=== PATIENT | male | born 1960 | race Caucasian/White ===

== ENCOUNTER 2020-01-24 13:51 | Emergency (ER) | payer OTHER, SELFPAY ==
[2020-01-24 13:54] VITALS: RESP 15; BMI 32.9
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
[2020-01-24 14:03] VITALS: BP 131/80; PULSE 53; RESP 12; TEMP 36.7; O2SAT 94
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
[2020-01-24 14:29] LABS: Add Urine Microscopic? NO
[2020-01-24 14:33] LABS: Urine Appearance Clear (CLEAR); Urine Color Yellow (Yellow)
[2020-01-24 14:34] LABS: Bilirubin Urine Neg (NEGATIVE); Blood Urine Neg (Negative); Glucose Urine UA Norm (Normal); Ketones Urine Negative (Negative); Leukocyte Esterase Urine Negative (Negative); Nitrate Urine Negative (Negative); Protein Urine Neg (Negative); Specific Gravity, Urine 1.025 (1.005-1.030); Urobilinogen Urine Neg (Negative); pH Urine 5 (5-7)
[2020-01-24 14:51] LABS: Basophils # 0.1 10^3/uL (0.0-0.1); Basophils % 0.9 %; Eosinophils # 0.3 10^3/uL (0.0-0.8); Hemoglobin 16.4 g/dL (11.7-16.6); Lymphocytes # 1.9 10^3/uL (0.8-4.8); Lymphocytes % 20.6 %; Mean Corpuscular HGB Conc 32.8 g/dL (30.0-36.0); Mean Corpuscular Hemoglobin 28.6 pg (28.0-34.0); Mean Corpuscular Volume 87.3 fL (80-94); Mean Platelet Volume 9.4 fL (7.4-10.4); Monocytes # 0.6 10^3/uL (0.2-0.9); Monocytes % 7.1 %; Neutrophils # 6.11 10^3/uL (1.8-7.7); Neutrophils % 67.8 %; Nucleated Red Blood Cells % 0 %; Platelet Count 219 10^3/cmm (130-400); Red Blood Count 5.73 10^6/uL (4.1-5.3); Red Cell Distribution Width 12.4 % (12.1-15.1)
[2020-01-24 15:10] LABS: Alanine Aminotransferase 52 U/L (0-41); Alkaline Phosphatase 110 IU/L (40-130); Aspartate Amino Transferase 25 U/L (0-40); Blood Urea Nitrogen 21 mg/dL (6-20); Calcium 9.5 mg/dL (8.5-10.5); Carbon Dioxide 27 mmol/L (22-29); Chloride 100 mmol/L (98-107); Globulin 2.6 g/dL (1.3-4.6); Glomerular Filtration Rate 76.7 mL/min (90-130); Glucose 97 mg/dL (65-115); Osmolality Calculated 283 mOsm/kg (285-295); Sodium 138 mmol/L (136-145); Total Bilirubin 1.4 mg/dL (0.15-1.2); Total Protein 7.6 g/dL (6.6-8.7)
[2020-01-24 15:50] VITALS: BP 133/66; PULSE 70; RESP 14; O2SAT 97
--- NOTE | 2020-01-24 15:57 | PC.NURSE ---
Read and agree with assessment.
== END 2020-01-24 15:51 | disposition home or self-care (01) ==
PROVIDERS: Emergency Provider Family Medicine
DX: S39.012A Strain of muscle, fascia and tendon of lower back, initial encounter (principal); V89.2XXA Person injured in unspecified motor-vehicle accident, traffic, initial encounter
CPT/HCPCS: 12345; 36415; 72040; 72131; 73110; 73130; 80053; 81003; 85025; 99283

== ENCOUNTER → 2021-11-15 14:30 | Outpatient (BNVA) | payer OTHER, SELFPAY | PROVIDERS: PCP Family Medicine; Visit Provider Family Medicine | DX: E79.0 Hyperuricemia without signs of inflammatory arthritis and tophaceous disease (principal) | CPT/HCPCS: 84550 ==

== ENCOUNTER → 2022-02-13 15:48 | Outpatient (BNVA) | payer OTHER, SELFPAY | PROVIDERS: PCP Family Medicine; Visit Provider Family Medicine | DX: M10.9 Gout, unspecified (principal); M25.50 Pain in unspecified joint | CPT/HCPCS: 80053; 84550 ==

== ENCOUNTER → 2022-10-01 14:01 | Outpatient (BNVA) | payer OTHER, SELFPAY | PROVIDERS: PCP Family Medicine; Visit Provider Nurse Practitioner Family | DX: M79.601 Pain in right arm (principal) | CPT/HCPCS: 73060 ==

== ENCOUNTER → 2022-12-05 09:59 | Outpatient (BNVA) | payer OTHER, SELFPAY | PROVIDERS: PCP Family Medicine; Visit Provider Family Medicine | DX: R10.9 Unspecified abdominal pain (principal); R39.9 Unspecified symptoms and signs involving the genitourinary system; M10.9 Gout, unspecified; M25.50 Pain in unspecified joint; R53.83 Other fatigue; R79.89 Other specified abnormal findings of blood chemistry; Z13.6 Encounter for screening for cardiovascular disorders; E03.9 Hypothyroidism, unspecified; R73.9 Hyperglycemia, unspecified; D17.9 Benign lipomatous neoplasm, unspecified | CPT/HCPCS: 80053; 80061; 81000; 82040; 82607; 83036; 84270; 84403; 84443; 85025 ==

== ENCOUNTER → 2022-12-17 08:08 | Outpatient (BNVA) | payer OTHER, SELFPAY | PROVIDERS: PCP Family Medicine; Visit Provider Family Medicine | DX: R11.2 Nausea with vomiting, unspecified (principal); R53.83 Other fatigue | CPT/HCPCS: 80053; 83690; 85025 ==

== ENCOUNTER → 2022-12-25 10:46 | Outpatient (BNVA) | payer OTHER, SELFPAY | PROVIDERS: PCP Family Medicine; Visit Provider Family Medicine | DX: R11.2 Nausea with vomiting, unspecified (principal); E03.9 Hypothyroidism, unspecified; R79.89 Other specified abnormal findings of blood chemistry | CPT/HCPCS: 80053; 85025; 86140 ==

== ENCOUNTER 2022-12-26 13:43 | Outpatient (CLI) | payer OTHER, SELFPAY ==
--- NOTE | 2022-12-26 13:30 | US_ITS ---
WS: [id number] Complete ABDOMINAL ULTRASOUND HISTORY: R11.2 - Nausea with vomiting, unspecified COMPARISON: None available. Liver: 16.8 cm in length. Normal size liver. Area of decreased attenuation adjacent to the gallbladde r is most likely focal fatty sparing. This area measures 3.0 x 1.7 x 1.6 cm. No bile duct dilatation. Portal Vein: Normal hepatopetal flow with monophasic waveform. Gallbladder: Cholelithiasis. No evidence for acute cholecystitis. No pericholecystic fluid. CBD: 0.4 cm Pancreas: Normal size and echogenicity. Right kidney: 11.0 cm x 6.0 x 4.9 cm. Cortex:1.1 cm. Normal size and echogenicity. No hydronephrosis or mass. Left kidney: 11.1 cm x 5.5 cm x 5.0 cm. Cortex: 1.1 cm. Normal size and echogenicity. No hydronephrosis or mass. Spleen: Normal size. Aorta and IVC: Unremarkable abdominal aorta and IVC. US/US abdomen complete* [id number] Impression: 1. Cholelithiasis without evidence for acute cholecystitis. 2. Focal fatty sparing adjacent to the gallbladder. 3. Normal spleen.
== END 2022-12-26 13:44 | disposition home or self-care (01) ==
PROVIDERS: PCP Family Medicine; Visit Provider Family Medicine
DX: R11.2 Nausea with vomiting, unspecified (principal); K80.20 Calculus of gallbladder without cholecystitis without obstruction; R79.89 Other specified abnormal findings of blood chemistry
CPT/HCPCS: 76700

== ENCOUNTER → 2023-01-19 11:28 | Outpatient (BNVA) | payer OTHER, SELFPAY | PROVIDERS: PCP Family Medicine; Visit Provider Family Medicine | DX: K80.20 Calculus of gallbladder without cholecystitis without obstruction (principal); R79.89 Other specified abnormal findings of blood chemistry; R11.2 Nausea with vomiting, unspecified; E03.9 Hypothyroidism, unspecified | CPT/HCPCS: 80053; 85025; 86140 ==

== ENCOUNTER 2023-11-06 13:54 | Emergency (ER) | payer OTHER, SELFPAY ==
[2023-11-06] VITALS (13 sets, daily range): BP systolic 126–179; BP diastolic 69–96; PULSE 46–58; RESP 12–18; TEMP 36.4; O2SAT 93–97; BMI 30.2
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
[2023-11-06 14:45] LABS: Basophils # 0.1 10^3/uL (0.0-0.1); Basophils % 0.8 %; Eosinophils # 0.3 10^3/uL (0.0-0.8); Hematocrit 49.2 % (37-53); Lymphocytes # 1.9 10^3/uL (0.8-4.8); Lymphocytes % 21.9 %; Mean Corpuscular HGB Conc 33.5 g/dL (30-55); Mean Corpuscular Hemoglobin 28.5 pg (27-33); Mean Corpuscular Volume 85.1 fl (82-101); Mean Platelet Volume 9.4 fL (7.4-10.4); Monocytes # 0.7 10^3/uL (0.2-0.9); Monocytes % 7.7 %; Neutrophils # 5.75 10^3/uL (1.8-7.7); Nucleated Red Blood Cells % 0 %; Platelet Count 247 10^3/cmm (157-399); Red Blood Count 5.78 10^6/uL (3.85-5.65); Red Cell Distribution Width 13.4 % (12.1-15.1); White Blood Count 8.71 10^3/uL (3.29-11.43)
[2023-11-06] MEDS: ketorolac 30 mg/mL INJ 15 MG IVP (14:55)
[2023-11-06] MEDS: ondansetron 2 mg/ML SDV 2 mL 4 MG IVP ×2 (14:55→23:15)
[2023-11-06 14:56] LABS: Alanine Aminotransferase 42 U/L (0-41); Albumin Level 4.4 g/dL (3.5-5.2); Alkaline Phosphatase 142 U/L (40-130); Anion Gap 13.2 (5-19); Aspartate Amino Transferase 24 U/L (0-40); Blood Urea Nitrogen 17 mg/dL (8-23); Calcium 9.1 mg/dL (8.5-10.5); Carbon Dioxide 28 mmol/L (22-29); Chloride 101 mmol/L (98-107); Creatinine Clr Calc Pharmacy 105.8665; Globulin 3.4 g/dL (1.3-4.6); Glomerular Filtration Rate 67.8 mL/min (90-130); Glucose 72 mg/dL (65-115); Osmolality Calculated 286 mOsm/kg (285-295); Potassium 4.2 mmol/L (3.5-5.1); Sodium 138 mmol/L (136-145); Total Bilirubin 1.2 mg/dL (0.15-1.2); Total Protein 7.8 g/dL (6.6-8.7)
--- NOTE | 2023-11-06 15:00 | PC.PHAR ---
PT STATES NO LONGER TAKES ANY MEDICATIONS AT ALL. 11/06/23
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
[2023-11-06 16:13] LABS: Add Urine Microscopic? NO; Charge for UA Resulting for Rev
[2023-11-06] MEDS: iohexol 350 mg/mL 500 mL Btl (per mL) IV (16:17)
[2023-11-06 16:22] LABS: Bilirubin Urine Neg (Negative); Blood Urine Neg (Negative); Glucose Urine UA Norm (Normal); Ketones Urine Negative (Negative); Leukocyte Esterase Urine Negative (Negative); Nitrate Urine Negative (Negative); Protein Urine Neg (Negative); Specific Gravity, Urine 1.025 (1.005-1.030); Urine Appearance Clear (CLEAR); Urine Color Yellow (Yellow); Urobilinogen Urine Norm (Negative); pH Urine 5 (5-7)
--- NOTE | 2023-11-06 18:22 | ED_ITS ---
HPI - Abdominal Pain 2 General: Chief Complaint: Abdominal Pain Stated Complaint: left side pain Time Seen by Provider: 11/06/23 14:08 Source: patient and family Mode of arrival: ambulatory Limitations: no limitations History of Present Illness: Left flank abdominal pain gradually creasing last 3 days. Currently 2 out of 10 at rest but if he goes to get up or move or anything becomes severe. Pertinent history as the patient had a horse accident back in April and had a left kidney laceration and large left renal subcapsular hematoma that is being followed by urology in clinic. He required no surgical intervention at that time. Has been back to doing pre much as normal including even rode horses last week without pain. Now even hurts to lift his left leg onto the bed. Review of Systems 2 General: Reports: 10 or more systems reviewed and unremarkable except in HPI and below PFSH ED 2 PFSH: Medical History No significant past medical history Surgical History S/P tonsillectomy and adenoidectomy S/P appendectomy History of back surgery Social History Smoking and tobacco/nicotine status: never used tobacco/nicotine Second hand smoke exposure: No Alcohol intake: current Substance/Drug Use: never Adopted: No Caregiver/support person: No Lives independently: Yes Household members: family Housing: House Marital status: Number of children: 1 Highest education level completed: Associate Degree: Occupational, Technical, Vocational Program service: No Current occupational status: employed Physical Exam 2 Const: COMMON NORMALS: no acute distress, average body habitus, patient oriented x3, healthy appearing, alert and well nourished GENERAL APPEARANCE: well kempt and well developed HENMT: COMMON NORMALS: normocephalic, atraumatic, external ears normal and moist oral mucous membranes HEAD & SCALP: normocephalic and atraumatic E XTERNAL EAR: Yes external ears normal Eye: COMMON NORMALS: Equal, round and reactive pupils present, EOMs intact bilaterally and conjunctivae normal CONJUNCTIVA: Yes conjunctivae normal P UPIL: Yes Equal, round and reactive pupils present Neck/C-Spine: COMMON NORMALS: full ROM, no lymphadenopathy and supple Chest: CHEST: Yes Symmetrical chest wall rise and No Surgical scars present (Chest) Resp: COMMON NORMALS: normal respiratory effort, No retractions, No use of accessory muscles and clear to auscultation bilaterally AUSCULTATION: clear to auscultation bilaterally Cardio: COMMON NORMALS: regular rate, regular rhythm, S1 normal heart sound present, S2 normal heart sound present, No gallops present (Cardio), No clicks present (Cardio), No murmurs present (Cardio) and No rub (Cardio) RATE: r egular rate RHYTHM: regular rhythm HEART SOUNDS: S1 normal heart sound present, S2 normal heart sound present and no murmurs PERIPHERAL PULSES: o ther (Radial pulses 2+ and symmetric) GI: COMMON NORMALS: Soft to palpation and no masses INSPECTION: No abdominal distension PALPATION: Yes Soft to palpation, Yes Tenderness to palpation present (GI) Details: LLQ and LUQ, Yes Guarding due to palpation present (GI) and No Rebound tenderness present : BLADDER/KIDNEY EXAM: Yes CVA tenderness on the left Back/Pelvis: GENERAL BACK: Yes CVA tenderness Extremity: COMMON NORMALS: normal to inspection, full ROM, capillary refill normal and no clubbing, cyanosis or edema Neuro: COMMON NORMALS: patient oriented x3 SENSORIUM/ORIENTATION: Yes alert Psych: APPEARANCE: Yes well kempt Skin: COMMON NORMALS: no rashes or lesions noted, no wounds, turgor normal and no jaundice GENERAL SKIN EXAM: no rashes or lesions noted and turgor normal Course 2 ED course: Stable pain ultrasound unable to even visualize the kidney. CT scan done and shows a large fluid collection attached to the left kidney subcentimeter hematoma and also what appears to be simple fluid. Per my interpretation. Radiology read provides more detail. Spoke with radiologist verbally after their read as well. Labs reviewed and unremarkable. Vital Signs: Vital signs: Vital Signs Temperature 97.5 F L 11/06/23 14:05 Pulse Rate 55 L 11/06/23 17:54 Respiratory Rate 16 11/06/23 17:54 Blood Pressure 156/96 11/06/23 17:54 Pulse Oximetry 96 11/06/23 17:54 Oxygen Delivery Me thod Room Air 11/06/23 17:54 MDM - Abdominal Pain Medical Decision Making See course discussion for radiology dictations. Patient deemed to need transfer with urology and IR capabilities. Spoke with [facility] in [place] their urologist reported that patient was too complicated for him. Patient has a 14.5 x 19.5 x 21.3 severe left kidney complex fluid collection. Comparing this to patient's CT scan from July which I will have his 1 view from patient's 's phone does appear that his kidney is now compressed and it was not this compressed in July. Spoke with [facility] in [place] and they agreed to accept patient Dr. Garland's excepting in the ER. Did discuss with their urologist Dr. Hanley. Differential Diagnosis Likely abdominal pain Medical Records I reviewed the patient's medical records. Lab Data I reviewed the patient's lab results. 11/06/23 14:16 11/06/23 14:16 Labs/Radiology: Radiology Impressions Renal Ultrasound 11/06/23 14:35 IMPRESSION: 1. No identifiable left kidney. A large complex area in the region of the left kidney is seen as described above. 2. Normal right kidney and bladder. Abdomen/Pelvis CT 11/06/23 15:33 IMPRESSION: 1. 19.5 cm x 4.5 cm x 21.3 cm left kidney subcapsular slightly complex fluid collection, favoring the known hematoma which appears to be chronic in etiology. The intraluminal strands/septations and nodular components are likely related to retractile clot although this should be confirmed with ultrasound and/or renal mass protocol MRI without and with intravenous contrast (to include subtraction postcontrast imaging). 2. Severe compression and displacement of the left kidney by the loculated collections/hematoma, in which Page kidney is possible. 3. Hepatomegaly. 4. Hepatic steatosis. 5. Cholelithiasis. 6. Colonic diverticulosis. 7. Incidental findings as above. COMMENTS: Consistent with the [employer]'s Incidental Findings Committee white paper (J Am Alexander Radiol 2018): Any incidental renal lesion less than 1 cm or classified as too small to characterize, or any incidental cystic renal lesion characterized as simple-appearing, is likely benign. No follow-up imaging is recommended for these lesions per consensus recommendations based on imaging criteria. ADDENDUM: 11/06/23 [id number] Comments: THIS REPORT CONTAINS FINDINGS THAT MAY BE CRITICAL TO PATIENT CARE. The findings were verbally communicated via telephone conference with MATTHEW REYNOSO at 5:11 PM CDT on 11/06/2023. The findings were acknowledged and understood. Laboratory Results WBC 8.71 10^3/uL (3.29-11.43) 11/06/23 14:16 RBC 5.78 10^6/uL (3.85-5.65) H 11/06/23 14:16 Hgb 16.50 g/dL (11.27-16.99) 11/06/23 14:16 Hct 49.2 % (37-53) 11/06/23 14:16 MCV 85.1 fl (82-101) 11/06/23 14:16 MCH 28.5 pg (27-33) 11/06/23 14:16 MCHC 33.5 g/dL (30-55) 11/06/23 14:16 RDW 13.4 % (12.1-15.1) 11/06/23 14:16 Plt Count 247 10^3/cmm (157-399) 11/06/23 14:16 MPV 9.4 fL (7.4-10.4) 11/06/23 14:16 Neut % (Auto) 66.0 % 11/06/23 14:16 Lymph % (Auto) 21.9 % 11/06/23 14:16 [place] % (Auto) 7.7 % 11/06/23 14:16 Eos % (Auto) 3.0 % 11/06/23 14:16 Baso % (Auto) 0.8 % 11/06/23 14:16 Neut # (Auto) 5.75 10^3/uL (1.8-7.7) 11/06/23 14:16 Lymph # (Auto) 1.9 10^3/uL (0.8-4.8) 11/06/23 14:16 Hettinger # (Auto) 0.7 10^3/uL (0.2-0.9) 11/06/23 14:16 Eos # (Auto) 0.3 10^3/uL (0.0-0.8) 11/06/23 14:16 Baso # (Auto) 0.1 10^3/uL (0.0-0.1) 11/06/23 14:16 Nucleated RBC % (auto) 0 % 11/06/23 14:16 Nucleated RBCs # 0.0 /100WBC 11/06/23 14:16 Sodium 138 mmol/L (136-145) 11/06/23 14:16 Potassium 4.2 mmol/L (3.5-5.1) 11/06/23 14:16 Chloride 101 mmol/L (98-107) 11/06/23 14:16 Carbon Dioxide 28 mmol/L (22-29) 11/06/23 14:16 Anion Gap 13.2 (5-19) 11/06/23 14:16 BUN 17 mg/dL (8-23) 11/06/23 14:16 Creatinine 1.1 mg/dL (0.7-1.2) 11/06/23 14:16 GFR Calculation 67.8 mL/min (90-130) L 11/06/23 14:16 Glucose 72 mg/dL (65-115) 11/06/23 14:16 Calculated Osmolality 286 mOsm/kg (285-295) 11/06/23 14:16 Calcium 9.1 mg/dL (8.5-10.5) 11/06/23 14:16 Total Bilirubin 1.2 mg/dL (0.15-1.2) 11/06/23 14:16 AST 24 U/L (0-40) 11/06/23 14:16 ALT 42 U/L (0-41) H 11/06/23 14:16 Alkaline Phosphatase 142 U/L (40-130) H 11/06/23 14:16 Total Protein 7.8 g/dL (6.6-8.7) 11/06/23 14:16 Albumin 4.4 g/dL (3.5-5.2) 11/06/23 14:16 Globulin 3.4 g/dL (1.3-4.6) 11/06/23 14:16 Urine Color Yellow (Yellow) 11/06/23 16:05 Urine Appearance Clear (CLEAR) 11/06/23 16:05 Urine pH 5 (5-7) 11/06/23 16:05 Ur Specific [place] 1.025 (1.005-1.030) 11/06/23 16:05 Urine Protein Neg (Negative) 11/06/23 16:05 Urine Glucose (UA) Norm (Normal) 11/06/23 16:05 Urine Ketones Negative (Negative) 11/06/23 16:05 Urine Blood Neg (Negative) 11/06/23 16:05 Urine Nitrate Negative (Negative) 11/06/23 16:05 Urine Bilirubin Neg (Negative) 11/06/23 16:05 Urine Urobilinogen Norm mg/dL (Negative) 11/06/23 16:05 Ur Leukocyte Esterase Negative (Negative) 11/06/23 16:05 All radiology interpretation(s) finalized by discharge Discharge Plan Discharge Patient Disposition: Transfer to ED Clinical Impression: Acute left flank pain, Closed hematoma of left kidney Condition: Stable Prescriptions: No Action No Known Home Medications Referrals: Phoenix Calhoun DO [Primary Care Provider] - Coding Level of Care Code ED Water Pollution Control Inspector for Adeline Grimaldo
--- NOTE | 2023-11-06 20:09 | PC.NURSE ---
PT PROVIDED WITH FOOD AND ICE WATER PER REQUEST AND APPROVAL BY PROVIDER.
[2023-11-06] MEDS: morphine 4 mg/mL SDV 1 mL IVP (23:15)
[2023-11-07] VITALS (10 sets, daily range): BP systolic 107–136; BP diastolic 62–96; PULSE 43–54; RESP 9–14; O2SAT 91–96
[2023-11-07] MEDS: ketorolac 30 mg/mL INJ 15 MG IVP (02:53)
[2023-11-07] MEDS: morphine 4 mg/mL SDV 1 mL IVP (07:32)
[2023-11-07] MEDS: ondansetron 2 mg/ML SDV 2 mL 4 MG IVP (07:32)
== END 2023-11-07 10:39 ==
PROVIDERS: Emergency Provider Emergency Medicine; PCP Family Medicine
DX: R10.9 Unspecified abdominal pain (principal); S37.022A Major contusion of left kidney, initial encounter; X58.XXXA Exposure to other specified factors, initial encounter
CPT/HCPCS: 36415; 74177; 76770; 80053; 81003; 85025; 96374; 96375; 96376; 99285; J1885; J2270; J2405; Q9967

== ENCOUNTER 2023-12-09 14:20 | Outpatient (CLI) | payer OTHER, SELFPAY ==
--- NOTE | 2023-12-09 15:30 | US_ITS ---
WS: [id number] ULTRASOUND RENAL TECHNIQUE: Ultrasound examination of both kidneys. CLINICAL INFORMATION: R10.9 - Unspecified abdominal pain COMPARISON: CT and ultrasound 11/06/2023 FINDINGS: LEFT renal subcapsular hematoma with septations and retractile clot measures approximately 17.6 x 11.0 x 15.3 cm. This is large in size but has slightly improved compared to the prior CT 2023. Persistent but slightly improved compression of the LEFT kidney RIGHT: Right kidney is normal in size and appearance. Echogenicity: Normal. Cortical thickness: 1.3 cm; Normal. Hydronephrosis: None. Perinephric fluid: None. Right kidney measures: 11.9 cm x 4.7 cm x 4.9 cm. LEFT: Left kidney compressed by the hematoma but improved compared to previous. Cortical thickness: 1.5 cm; Hydronephrosis: None. Perinephric fluid: None. Left kidney measures: 12.9 cm x 4.9 cm x 4.8 cm. Normal visualized aorta. US/US renal BI* [id number] IMPRESSION: 1. No hydronephrosis in either kidney. 2. Subcapsular LEFT renal hematoma with associated septations and retracted cl ot. Compression and displacement of the LEFT kidney is persistent but slightly improved compared to the prior studies. 3. Persistent large hematoma slightly improved compared to the prior studies. This measures approximately 17.6 x 15.3 x 11.0 cm. On the prior CT this measure d approximately 22.0 x 16.6 x 12.9 cm 4. No other significant changes. Notified Phoenix Calhoun DO at 12/09/2023 3:44 PM.
== END 2023-12-09 14:21 | disposition home or self-care (01) ==
LOC: RAD 14:22
PROVIDERS: PCP Family Medicine; Visit Provider Family Medicine
DX: S37.022A Major contusion of left kidney, initial encounter (principal); X58.XXXA Exposure to other specified factors, initial encounter
CPT/HCPCS: 76770

== ENCOUNTER 2024-01-28 13:17 | Outpatient (CLI) | payer OTHER, SELFPAY ==
--- NOTE | 2024-01-28 13:45 | MR_ITS ---
WS: [id number] MRI LEFT SHOULDER HISTORY: M25.512 - Pain in left shoulder COMPARISON: None available. TECHNIQUE: Multiplanar sequences of the shoulder joint are submitted. Small amount of fluid along the AC joint and mild hypertrophic osteophyte disease. Mild subacromial i mpingement upon the supraspinatus tendon by an osteophyte. No significant subacromial or subdeltoid b ursal fluid. Biceps tendon remains in normal position. No os acromion. There is a small amount of increased T2 signal along the articular surface of the distal supraspinatu s tendon consistent with supraspinatus tendon tear. Tear extends to the insertion site. Tear involves the articular surface also. There is additional fraying along the articular surface of the tendon ov er the humeral head. The remaining tendons are normal. No muscle atrophy or edema. Small amount of fl uid in the subscapularis recess. No labral tear. MR/MR shoulder LT wo con* [id number] IMPRESSION: 1. Small amount of fluid in the AC joint this may be from the recent trauma in dicating a mild sprain. 2. Distal articular surface and insertion site tear of the supraspinatus tendo n with fraying along the articular surface. 3. No labral tear identified. 4. No rotator cuff muscle atrophy or edema.
== END 2024-01-28 13:18 | disposition home or self-care (01) ==
PROVIDERS: PCP Family Medicine; Visit Provider Family Medicine
DX: S46.012A Strain of muscle(s) and tendon(s) of the rotator cuff of left shoulder, initial encounter (principal)
CPT/HCPCS: 73221

== ENCOUNTER 2025-02-05 20:15 | Emergency (ER) | payer OTHER, SELFPAY ==
--- OUTSIDE RECORDS SUMMARY | 2024-01-20 12:00 | XMS_ITS ---
Author Organization [facility] Address [address] [place] [address] Care Team Providers Care Cushion Cover Inspector Name Role Phone Phoenix Calhoun Primary Care Provider FERCHO Shore Unavailable [phone] REASON FOR VISIT Kidney injury in May Encounters Encounter Location Date Provider Diagnosis [facility] [address] [place] [place] [address] 01/20/2024 FERCHO MIRANDA Plan Of Treatment No Information Progress Notes * Jack CASTILLOinDOB: [birth year] (64 yo M)Acc No.[id number]:01/20/2024 Progress Notes Patient: Desean HUSSEINAbhijit MALHOTRA Provider: Eb Miranda APRN :1960 A ge:63 Y S ex:Male Date:01/20/2024 [id number] Pcp:Phoenix Calhoun Subjective: * Chief Complaints: * 1 . Kidney injury in May. * Medical History: Objective: * Vitals: Assessment: Plan: * Treatment: * Billing Information: * Visit Code: * Procedure Codes: * Electronic signature of LEFTY MIRANDA APRN on 02/08/2025 at 07:58 AM CDT Sign off status: Pending * Provider: Eb Miranda APRN Date: 01/20/2024 Generated for Jessica kilpatrick/Guerrero/eTransmitting on: 02/08/2025 07:58 AM CDT
[2025-02-05 20:23] VITALS: BP 174/93; PULSE 61; RESP 16; O2SAT 97
--- NOTE | 2025-02-05 21:28 | ECG_ITS ---
true[x] [facility] [place] [place] [facility] 2025-02[facility]05 Pat Name: Abhijit Castillo Department: Room: Gender: Male Netsuite Consultant: : 1960 Requested By: Costa Alvarado Order Number: [id number] Yisel MD: Tabatha Ayala M.D. Measurements Intervals [place] Rate: 51 P: 61 MI: 205 QRS: 62 QRSD: 104 T: 40 QT: 428 QTc: 396 Interpretive Statements SINUS BRADYCARDIA WITH SINUS ARRHYTHMIA No previous ECG available for comparison Electronically Signed On 02-06-2025 22:45:33 CDT by Tabatha Ayala M.D. [email or web address]
[2025-02-05 22:52] VITALS: BP 148/85; PULSE 50; RESP 16; O2SAT 96
[2025-02-05 23:00] LABS: Hematocrit 50.3 % (37-53); Hemoglobin 17.30 g/dL (11.27-16.99); Mean Corpuscular HGB Conc 34.4 g/dL (30-55); Mean Corpuscular Hemoglobin 28.6 pg (27-33); Mean Corpuscular Volume 83.3 fl (82-101); Nucleated Red Blood Cells % 0 %; Platelet Count 236 10^3/cmm (157-399); Red Blood Count 6.04 10^6/uL (3.85-5.65); White Blood Count 13.29 10^3/uL (3.29-11.43)
[2025-02-05 23:20] LABS: Alanine Aminotransferase 29 U/L (0-41); Albumin Level 4.7 g/dL (3.5-5.2); Alkaline Phosphatase 157 U/L (40-130); Anion Gap 20.0 (5-19); Aspartate Amino Transferase 22 U/L (0-40); Blood Urea Nitrogen 25 mg/dL (8-23); Calcium 9.5 mg/dL (8.5-10.5); Carbon Dioxide 24 mmol/L (22-29); Chloride 96 mmol/L (98-107); Creatinine Clr Calc Pharmacy 103.6272; Globulin 3.0 g/dL (1.3-4.6); Glucose 93 mg/dL (65-115); Magnesium 2.5 mg/dL (1.7-2.3); Osmolality Calculated 286 mOsm/kg (285-295); Potassium 4.0 mmol/L (3.5-5.1); Sodium 136 mmol/L (136-145); Total Protein 7.7 g/dL (6.6-8.7)
[2025-02-06 00:30] LABS: Glucose Urine UA Negative (Normal); Nitrate Urine Negative (Negative); Specific Gravity, Urine 1.021 (1.005-1.030)
[2025-02-06 00:35] LABS: Add Urine Microscopic? YES
--- NOTE | 2025-02-06 00:47 | W.ED.GENADLT ---
Documented by User: RANJEET Chaudhari 02/06/25 00:50 HPI - General Adult General: Chief complaint: General Medical Stated complaint: High Blood Pressure, Rash, lips/face numb Time Seen by Provider: 02/05/25 22:36 Source: patient Mode of arrival: ambulatory Limitations: no limitations History of Present Illness: Patient is a 64-year-old male who presents the emergency department planing of hypertension for the past few days. States that recently he was started on doxycycline and prednisone for a rash to his left upper extremity, and about that time noticed that he started to have perioral numbness intermittently, as well as nosebleeds and headache. States that he took his blood pressure and noted that it was in the 180 systolic, and has been doing this with his symptoms. States that normally he is 120/70 and heart rate is normally in the 40s or 50s, and that he has also had heart rate in the 80s. Denies any chest pain or shortness of breath, or any other symptoms. Does note a history of left renal hematoma that is stable. MD complaint: Hypertension, perioral numbness, nosebleeds Onset (ago): day(s) Associated symptoms: Reports headache(s) and rash; Deny chest pain, dyspnea, nausea, palpitations or vomiting Related Data Previous Rx's ?Medication ?Instructions ?Recorded febuxostat 80 mg tablet (Uloric) 80 mg PO DAILY uric acid 02/18/24 elevation/gout #90 tabs doxycycline hyclate 100 mg tablet 100 mg PO BID #10 tabs 02/02/25 triamcinolone acetonide 0.5 % 1 applic topical TID #15 grams 02/06/25 topical ointment Allergies Allergy/AdvReac Type Severity Reaction Status Date / Time No Known Allergies Allergy Verified 02/02/25 14:17 Review of Systems General: Reports: 10 or more systems reviewed and unremarkable except in HPI and below Const: Denies: fever(s), chills or fatigue Eyes: Denies: change in vision ENMT: Reports: epistaxis and other (Perioral numbness); Denies: throat pain, ear or mastoid pain or nasal discharge Card: Reports: other (Hypertension); Denies: chest pain, palpitations, swelling of feet/ankles or lightheadedness Resp: Denies: dyspnea, productive cough or wheezing GI: Denies: abdominal pain, nausea, vomiting, diarrhea or constipation : Denies: flank pain, difficulty urinating, dysuria or urinary frequency Musc: Denies: neck pain, back pain or joint pain Skin/Breast: Reports: rash Neuro: Reports: headache(s); Denies: numbness in extremities or weakness in extremities PFSH ED PFSH: Medical History No significant past medical history Surgical History S/P tonsillectomy and adenoidectomy S/P appendectomy History of back surgery Social History Smoking and tobacco/nicotine status: unknown if used tobacco/nicotine Second hand smoke exposure: No Alcohol intake: current Substance/Drug Use: never Adopted: No Caregiver/support person: No Lives independently: Yes Household members: family Housing: House Marital status: Number of children: 1 Highest education level completed: Associate Degree: Occupational, Technical, Vocational Program service: No Current occupational status: employed Physical Exam Const: COMMON NORMALS: no acute distress, patient oriented x3 and no limitations GENERAL APPEARANCE: cooperative, comfortable and well developed ORIENTATION/CONSCIOUSNESS: Yes awake, Yes oriented to person, Yes oriented to place and Yes oriented to time HENMT: COMMON NORMALS: normocephalic, atraumatic and hearing grossly normal bilaterally HEAD & SCALP: normocephalic and atraumatic Eye: COMMON NORMALS: Equal, round and reactive pupils present, EOMs intact bilaterally and conjunctivae normal CONJUNCTIVA: Yes conjunctivae normal PUPIL: Yes Equal, round and reactive pupils present Neck/C-Spine: COMMON NORMALS: full ROM, supple and no JVD Resp: COMMON NORMALS: normal respiratory effort, No retractions, No use of accessory muscles and clear to auscultation bilaterally AUSCULTATION: clear to auscultation bilaterally Cardio: COMMON NORMALS: no JVD, regular rate, regular rhythm, No clicks present (Cardio), No murmurs present (Cardio) and No rub (Cardio) RATE: regular rate RHYTHM: regular rhythm GI: COMMON NORMALS: Normal to inspection, nondistended, normoactive bowel sounds present, Soft to palpation and non-tender AUSCULTATION: Yes normoactive bowel sounds PALPATION: Yes Soft to palpation RECTAL EXAM: Yes deferred : COMMON NORMALS: Yes no CVA tenderness BLADDER/KIDNEY EXAM: Yes no CVA tenderness Back/Pelvis: COMMON NORMALS: no CVA tenderness, thoracic and lumbar spine normal to inspection, no thoracic nor lumbar tenderness and thoraco-lumbar ROM normal Extremity: COMMON NORMALS: normal to inspection, full ROM and capillary refill normal Neuro: COMMON NORMALS: patient oriented x3, moves all extremities, no focal motor deficits and no sensory deficits noted SENSORIUM/ORIENTATION: Yes oriented to person, Yes oriented to place and Yes oriented to time Psych: COMMON NORMALS: mental status grossly normal and Normal thought process present THOUGHT PROCESS: Normal thought process present Skin: NARRATIVE SKIN EXAM: Eczematous appearing rash to patient's left upper arm and left flank Course Vital Signs: Vital signs: Vital Signs Pulse Rate 56 L 02/06/25 01:00 Respiratory Rate 16 02/05/25 22:52 Blood Pressure 137/89 02/06/25 01:00 Pulse Oximetry 96 02/06/25 01:00 Oxygen Delivery Me thod Room Air 02/05/25 20:23 MDM - General Adult Medical Decision Making Patient presenting with reports of hypertension at home, recently began doxycycline and prednisone. History of left renal hematoma, otherwise healthy. Does not take anything for hypertension. Pressure with triage was 170/93, it has gradually decreased throughout ED stay. His labs were reassuring. EKG was also reassuring. I suspect that his transient hypotension is from his use of prednisone, I will have him stop this and we will do topical triamcinolone. He has been asymptomatic throughout ED stay, we will discharge home and have him continue monitoring blood pressure at home and follow-up routinely with regular provider this week for reevaluation. Lab Data 02/05/25 22:49 02/05/25 22:49 Laboratory Results WBC 13.29 10^3/uL (3.29-11.43) H 02/05/25 22:49 RBC 6.04 10^6/uL (3.85-5.65) H 02/05/25 22:49 Hgb 17.30 g/dL (11.27-16.99) H 02/05/25 22:49 Hct 50.3 % (37-53) 02/05/25 22:49 MCV 83.3 fl (82-101) 02/05/25 22:49 MCH 28.6 pg (27-33) 02/05/25 22:49 MCHC 34.4 g/dL (30-55) 02/05/25 22:49 RDW 12.6 % (12.1-15.1) 02/05/25 22:49 Plt Count 236 10^3/cmm (157-399) 02/05/25 22:49 MPV 9.6 fL (7.4-10.4) 02/05/25 22:49 Neut % (Auto) 74.7 % 02/05/25 22:49 Lymph % (Auto) 13.6 % 02/05/25:49 [place] % (Auto) 6.7 % 02/05/25:49 Eos % (Auto) 4.2 % 02/05/25:49 Baso % (Auto) 0.5 % 02/05/25: Neut # (Auto) 9.93 10^3/uL (1.8-7.7) H 02/05/25 22:49 Lymph # (Auto) 1.8 10^3/uL (0.8-4.8) 02/05/25 22:49 [place] # (Auto) 0.9 10^3/uL (0.2-0.9) 02/05/25 22:49 Eos # (Auto) 0.6 10^3/uL (0.0-0.8) 02/05/25:49 Baso # (Auto) 0.1 10^3/uL (0.0-0.1) 02/05/25 22:49 Nucleated RBC % (auto) 0 % 02/05/25: Nucleated RBCs # 0.0 /100WBC 02/05/25 22:49 Sodium 136 mmol/L (136-145) 02/05/25 22:49 Potassium 4.0 mmol/L (3.5-5.1) 02/05/25 22:49 Chloride 96 mmol/L (98-107) L 02/05/25 22:49 Carbon Dioxide 24 mmol/L (22-29) 02/05/25 22:49 Anion Gap 20.0 (5-19) H 02/05/25 22:49 BUN 25 mg/dL (8-23) H 02/05/25 22:49 Creatinine 1.1 mg/dL (0.7-1.2) 02/05/25 22:49 GFR Calculation 67.6 mL/min (90-130) L 02/05/25 22:49 Glucose 93 mg/dL (65-115) 02/05/25 22:49 Calculated Osmolality 286 mOsm/kg (285-295) 02/05/25 22:49 Calcium 9.5 mg/dL (8.5-10.5) 02/05/25 22:49 Magnesium 2.5 mg/dL (1.7-2.3) H 02/05/25 22:49 Total Bilirubin 2.0 mg/dL (0.15-1.2) H 02/05/25 22:49 AST 22 U/L (0-40) 02/05/25 22:49 ALT 29 U/L (0-41) 02/05/25 22:49 Alkaline Phosphatase 157 U/L (40-130) H 02/05/25 22:49 Total Protein 7.7 g/dL (6.6-8.7) 02/05/25 22:49 Albumin 4.7 g/dL (3.5-5.2) 02/05/25 22:49 Globulin 3.0 g/dL (1.3-4.6) 02/05/25 22:49 Urine Color Yellow (Yellow) 02/06/25 00:02 Urine Appearance Clear (CLEAR) 02/06/25 00:02 Urine pH 5.0 (5-7) 02/06/25 00:02 Ur Specific [place] 1.021 (1.005-1.030) 02/06/25 00:02 Urine Protein Trace (Negative) A 02/06/25 00:02 Urine Glucose (UA) Negative (Normal) 02/06/25 00:02 Urine Ketones 2+ (Negative) H 02/06/25 00:02 Urine Blood Negative (Negative) 02/06/25 00:02 Urine Nitrate Negative (Negative) 02/06/25 00:02 Urine Bilirubin Negative (Negative) 02/06/25 00:02 Urine Urobilinogen 1.0 mg/dL (Negative) 02/06/25 00:02 Ur Leukocyte Esterase Negative (Negative) 02/06/25 00:02 Urine RBC 0-2 /hpf (0-2) 02/06/25 00:02 Urine WBC 0-5 /hpf (0-5) 02/06/25 00:02 Ur Squamous Epith Cells 0-5 /hpf (0-5) 02/06/25 00:02 Amorphous Sediment Not Reportable 02/06/25 00:02 Urine Bacteria None seen /hpf (NONE) 02/06/25 00:02 Hyaline Casts 3.71 /lpf 02/06/25 00:02 No radiology studies performed this visit Discharge Plan Discharge Patient Disposition: Home Clinical Impression: Secondary hypertension Eczema Qualifiers: Eczema type: unspecified Qualified Code(s): L30.9 - Dermatitis, unspecified Condition: Stable Prescriptions: New triamcinolone acetonide 0.5 % ointment 1 applic topical TID Qty: 15 0RF Discontinued prednisone 20 mg tablet See Rx Instructions PO BID Qty: 18 5RF Rx Instructions: 3 po qday x 3 days, then 2 po qday x 3 days, the 1 po qday x 3 days. prednisone 20 mg tablet 20 mg PO DAILY Qty: 5 0RF prednisone 20 mg tablet 60 mg PO DAILY 3 Days Qty: 9 0RF No Action febuxostat [Uloric] 80 mg tablet 80 mg PO DAILY Qty: 90 3RF doxycycline hyclate 100 mg tablet 100 mg PO BID Qty: 10 0RF Discharge Orders: Discharge ED (Routine); Ordered 02/06/25 Ordered By: Deon Watt Referrals: Phoenix Calhoun DO [Primary Care Provider, Family Practice] Patient Instructions: Patient Portal & Ashley Instructions Activity Restrictions/Additional Instructions: Discharge instructions Diagnosis today: Elevated blood pressure likely related to recent prednisone use; rash requiring topical steroid treatment. Summary of today?s visit - Blood pressure was high on arrival and improved gradually during the emergency department stay. - Symptoms included lip/mouth area numbness and nosebleeds. Lab tests and heart tracing (ECG) were reassuring. - Prednisone is being stopped because steroids can raise blood pressure. Short courses can cause higher blood pressure, mood changes, and high blood sugar in some patients. - The rash will be managed with a topical steroid (triamcinolone), which treats skin inflammation with low risk of whole?body side effects when used correctly. Medications and skin care plan - Stop oral prednisone now. Systemic corticosteroids can raise blood pressure through salt and water retention; discontinuation is appropriate when risks outweigh benefits. Because this was a short recent course, no taper is typically needed; if taken at high dose or for more than ~3 weeks, a taper can be considered based on clinical judgment. - Doxycycline: Continue or stop per the original plan from the prescriber; no changes were made in the emergency department. - Start triamcinolone (topical steroid) for the rash: - Apply a thin layer to the affected areas 2?3 times daily, using the lowest amount that controls symptoms. - Do not apply to the face, groin, armpits, or broken skin unless directed. - Do not use with tight bandages or plastic wrap (no occlusion) unless specifically instructed; occlusion greatly increases absorption and side effects. - Avoid contact with the eyes. - Once the rash improves, reduce frequency and stop. Long-term continuous use, use on thin skin, or large areas increases risk of skin thinning; non-skin side effects are rare when used as directed. Blood pressure monitoring at home - Obtain or use a validated home BP monitor (arm cuff). Bring the monitor and a log to follow-up. Validated devices are recommended by the [place] [employer] for accurate home readings. - How to check: - Sit quietly for 5 minutes, back supported, feet flat, arm at heart level. - No caffeine, exercise, or tobacco for 30 minutes before measuring. - Check twice daily (morning and evening) for the next 1?2 weeks; record date, time, and readings. - Target and when to seek help: - If BP is 180/120 mm Hg or higher and you have chest pain, shortness of breath, severe headache, weakness, vision changes, confusion, or fainting, call emergency services. - If BP is repeatedly 160/100 mm Hg or higher without symptoms, call the clinic for advice within 24?48 hours. - Occasional mild nosebleeds can occur with high BP; if bleeding persists more than 15 minutes despite pressure, or is heavy, seek urgent care. Symptoms to watch for and when to return - Worsening neurologic symptoms (new weakness, trouble speaking, vision loss), chest pain, shortness of breath, severe headache, confusion, fainting: seek emergency care. - Signs of steroid side effects after stopping prednisone are uncommon after short courses, but report severe fatigue, dizziness, or persistent low blood pressure if they occur. - Skin: stop triamcinolone and call if there is worsening redness, pain, pus, fever (possible infection) or signs of skin thinning. Do not use on suspected skin infections without medical advice. Lifestyle measures for blood pressure - Limit salt (sodium) intake and avoid excess alcohol. Maintain hydration and regular activity as tolerated. These steps can help BP control as you transition off prednisone, which can cause salt and water retention and higher BP. Follow?up and care coordination - Primary care follow-up: within 1 week to review blood pressure log, reassess symptoms, and adjust therapy if needed. Bringing all medications (including [id number] and supplements) is helpful for a complete review, because some drugs can raise blood pressure and should be stopped if possible. - Dermatology follow-up: if the rash does not improve within 1?2 weeks on topical therapy or if frequent recurrences occur, consider dermatology evaluation to confirm diagnosis and optimize non?systemic treatments. - Bring this instruction sheet, the home BP log, and the BP monitor to your appointments. Clear communication of medication changes and home BP data improves safety and blood pressure control after discharge. Why prednisone was stopped - Oral corticosteroids like prednisone can raise blood pressure by causing salt and water retention and other metabolic effects; even short courses are associated with transient elevations in blood pressure and other side effects. - Because today?s tests were reassuring and the rash can be managed with topical therapy, stopping prednisone is the safest option. Topical steroids used correctly have a favorable safety profile, with rare systemic effects and most concerns limited to local skin changes with prolonged or inappropriate use. Print Language: Nauruan Coding Level of Care Code ED Comic Book Designer for g Fwd Documented by User: Costa Hernandez DO 02/06/25 03:45 HPI - General Adult General: Chief complaint: General Medical Stated complaint: High Blood Pressure, Rash, lips/face numb Time Seen by Provider: 02/05/25 22:36 Related Data Previous Rx's ?Medication ?Instructions ?Recorded febuxostat 80 mg tablet (Uloric) 80 mg PO DAILY uric acid 02/18/24 elevation/gout #90 tabs doxycycline hyclate 100 mg tablet 100 mg PO BID #10 tabs 02/02/25 triamcinolone acetonide 0.5 % 1 applic topical TID #15 grams 02/06/25 topical ointment Allergies Allergy/AdvReac Type Severity Reaction Status Date / Time No Known Allergies Allergy Verified 02/02/25 14:17 [facility] ED PFSH: Medical History No significant past medical history Surgical History S/P tonsillectomy and adenoidectomy S/P appendectomy History of back surgery Social History Smoking and tobacco/nicotine status: unknown if used tobacco/nicotine Second hand smoke exposure: No Alcohol intake: current Substance/Drug Use: never Adopted: No Caregiver/support person: No Lives independently: Yes Household members: family Housing: House Marital status: Number of children: 1 Highest education level completed: Associate Degree: Occupational, Technical, Vocational Program service: No Current occupational status: employed Course Vital Signs: Vital signs: Vital Signs Pulse Rate 56 L 02/06/25 01:00 Respiratory Rate 16 02/05/25 22:52 Blood Pressure 137/89 02/06/25 01:00 Pulse Oximetry 96 02/06/25 01:00 Oxygen Delivery Me thod Room Air 02/05/25 20:23 MDM - General Adult Medical Decision Making Patient presenting with reports of hypertension at home, recently began doxycycline and prednisone. History of left renal hematoma, otherwise healthy. Does not take anything for hypertension. Pressure with triage was 170/93, it has gradually decreased throughout ED stay. His labs were reassuring. EKG was also reassuring. I suspect that his transient hypotension is from his use of prednisone, I will have him stop this and we will do topical triamcinolone. He has been asymptomatic throughout ED stay, we will discharge home and have him continue monitoring blood pressure at home and follow-up routinely with regular provider this week for reevaluation. Patient was originally seen by Mr. Alysa PA-C. I agree with his history, evaluation, and management. Lab Data 02/05/25 22:49 02/05/25 22:49 Laboratory Results WBC 13.29 10^3/uL (3.29-11.43) H 02/05/25 22:49 RBC 6.04 10^6/uL (3.85-5.65) H 02/05/25 22:49 Hgb 17.30 g/dL (11.27-16.99) H 02/05/25 22:49 Hct 50.3 % (37-53) 02/05/25 22:49 MCV 83.3 fl (82-101) 02/05/25 22:49 MCH 28.6 pg (27-33) 02/05/25 22: MCHC 34.4 g/dL (30-55) 02/05/25: RDW 12.6 % (12.1-15.1) 02/05/25:49 Plt Count 236 10^3/cmm (157-399) 02/05/25 22:49 MPV 9.6 fL (7.4-10.4) 02/05/25 22:49 Neut % (Auto) 74.7 % 02/05/25 22:49 Lymph % (Auto) 13.6 % 02/05/25:49 [place] % (Auto) 6.7 % 02/05/25:49 Eos % (Auto) 4.2 % 02/05/25:49 Baso % (Auto) 0.5 % 02/05/25:49 Neut # (Auto) 9.93 10^3/uL (1.8-7.7) H 02/05/25 22:49 Lymph # (Auto) 1.8 10^3/uL (0.8-4.8) 02/05/25 22:49 [place] # (Auto) 0.9 10^3/uL (0.2-0.9) 02/05/25:49 Eos # (Auto) 0.6 10^3/uL (0.0-0.8) 02/05/25 22:49 Baso # (Auto) 0.1 10^3/uL (0.0-0.1) 02/05/25:49 Nucleated RBC % (auto) 0 % 02/05/25:49 Nucleated RBCs # 0.0 /100WBC 02/05/25 22:49 Sodium 136 mmol/L (136-145) 02/05/25 22:49 Potassium 4.0 mmol/L (3.5-5.1) 02/05/25 22:49 Chloride 96 mmol/L (98-107) L 02/05/25 22:49 Carbon Dioxide 24 mmol/L (22-29) 02/05/25 22:49 Anion Gap 20.0 (5-19) H 02/05/25 22:49 BUN 25 mg/dL (8-23) H 02/05/25 22:49 Creatinine 1.1 mg/dL (0.7-1.2) 02/05/25 22:49 GFR Calculation 67.6 mL/min (90-130) L 02/05/25 22:49 Glucose 93 mg/dL (65-115) 02/05/25 22:49 Calculated Osmolality 286 mOsm/kg (285-295) 02/05/25 22:49 Calcium 9.5 mg/dL (8.5-10.5) 02/05/25 22:49 Magnesium 2.5 mg/dL (1.7-2.3) H 02/05/25 22:49 Total Bilirubin 2.0 mg/dL (0.15-1.2) H 02/05/25 22:49 AST 22 U/L (0-40) 02/05/25 22:49 ALT 29 U/L (0-41) 02/05/25 22:49 Alkaline Phosphatase 157 U/L (40-130) H 02/05/25 22:49 Total Protein 7.7 g/dL (6.6-8.7) 02/05/25 22:49 Albumin 4.7 g/dL (3.5-5.2) 02/05/25 22:49 Globulin 3.0 g/dL (1.3-4.6) 02/05/25 22:49 Urine Color Yellow (Yellow) 02/06/25 00:02 Urine Appearance Clear (CLEAR) 02/06/25 00:02 Urine pH 5.0 (5-7) 02/06/25 00:02 Ur Specific [place] 1.021 (1.005-1.030) 02/06/25 00:02 Urine Protein Trace (Negative) A 02/06/25 00:02 Urine Glucose (UA) Negative (Normal) 02/06/25 00:02 Urine Ketones 2+ (Negative) H 02/06/25 00:02 Urine Blood Negative (Negative) 02/06/25 00:02 Urine Nitrate Negative (Negative) 02/06/25 00:02 Urine Bilirubin Negative (Negative) 02/06/25 00:02 Urine Urobilinogen 1.0 mg/dL (Negative) 02/06/25 00:02 Ur Leukocyte Esterase Negative (Negative) 02/06/25 00:02 Urine RBC 0-2 /hpf (0-2) 02/06/25 00:02 Urine WBC 0-5 /hpf (0-5) 02/06/25 00:02 Ur Squamous Epith Cells 0-5 /hpf (0-5) 02/06/25 00:02 Amorphous Sediment Not Reportable 02/06/25 00:02 Urine Bacteria None seen /hpf (NONE) 02/06/25 00:02 Hyaline Casts 3.71 /lpf 02/06/25 00:02 Discharge Plan Discharge Patient Disposition: Home Clinical Impression: Secondary hypertension Eczema Qualifiers: Eczema type: unspecified Qualified Code(s): L30.9 - Dermatitis, unspecified Condition: Stable Prescriptions: New triamcinolone acetonide 0.5 % ointment 1 applic topical TID Qty: 15 0RF Discontinued prednisone 20 mg tablet See Rx Instructions PO BID Qty: 18 5RF Rx Instructions: 3 po qday x 3 days, then 2 po qday x 3 days, the 1 po qday x 3 days. prednisone 20 mg tablet 20 mg PO DAILY Qty: 5 0RF prednisone 20 mg tablet 60 mg PO DAILY 3 Days Qty: 9 0RF No Action febuxostat [Uloric] 80 mg tablet 80 mg PO DAILY Qty: 90 3RF doxycycline hyclate 100 mg tablet 100 mg PO BID Qty: 10 0RF Discharge Orders: Discharge ED (Routine); Ordered 02/06/25 Ordered By: Deon Watt Referrals: Phoenix Calhoun DO [Primary Care Provider, Family Practice] Patient Instructions: Patient Portal & Ashley Instructions Activity Restrictions/Additional Instructions: Discharge instructions Diagnosis today: Elevated blood pressure likely related to recent prednisone use; rash requiring topical steroid treatment. Summary of today?s visit - Blood pressure was high on arrival and improved gradually during the emergency department stay. - Symptoms included lip/mouth area numbness and nosebleeds. Lab tests and heart tracing (ECG) were reassuring. - Prednisone is being stopped because steroids can raise blood pressure. Short courses can cause higher blood pressure, mood changes, and high blood sugar in some patients. - The rash will be managed with a topical steroid (triamcinolone), which treats skin inflammation with low risk of whole?body side effects when used correctly. Medications and skin care plan - Stop oral prednisone now. Systemic corticosteroids can raise blood pressure through salt and water retention; discontinuation is appropriate when risks outweigh benefits. Because this was a short recent course, no taper is typically needed; if taken at high dose or for more than ~3 weeks, a taper can be considered based on clinical judgment. - Doxycycline: Continue or stop per the original plan from the prescriber; no changes were made in the emergency department. - Start triamcinolone (topical steroid) for the rash: - Apply a thin layer to the affected areas 2?3 times daily, using the lowest amount that controls symptoms. - Do not apply to the face, groin, armpits, or broken skin unless directed. - Do not use with tight bandages or plastic wrap (no occlusion) unless specifically instructed; occlusion greatly increases absorption and side effects. - Avoid contact with the eyes. - Once the rash improves, reduce frequency and stop. Long-term continuous use, use on thin skin, or large areas increases risk of skin thinning; non-skin side effects are rare when used as directed. Blood pressure monitoring at home - Obtain or use a validated home BP monitor (arm cuff). Bring the monitor and a log to follow-up. Validated devices are recommended by the [place] [employer] for accurate home readings. - How to check: - Sit quietly for 5 minutes, back supported, feet flat, arm at heart level. - No caffeine, exercise, or tobacco for 30 minutes before measuring. - Check twice daily (morning and evening) for the next 1?2 weeks; record date, time, and readings. - Target and when to seek help: - If BP is 180/120 mm Hg or higher and you have chest pain, shortness of breath, severe headache, weakness, vision changes, confusion, or fainting, call emergency services. - If BP is repeatedly 160/100 mm Hg or higher without symptoms, call the clinic for advice within 24?48 hours. - Occasional mild nosebleeds can occur with high BP; if bleeding persists more than 15 minutes despite pressure, or is heavy, seek urgent care. Symptoms to watch for and when to return - Worsening neurologic symptoms (new weakness, trouble speaking, vision loss), chest pain, shortness of breath, severe headache, confusion, fainting: seek emergency care. - Signs of steroid side effects after stopping prednisone are uncommon after short courses, but report severe fatigue, dizziness, or persistent low blood pressure if they occur. - Skin: stop triamcinolone and call if there is worsening redness, pain, pus, fever (possible infection) or signs of skin thinning. Do not use on suspected skin infections without medical advice. Lifestyle measures for blood pressure - Limit salt (sodium) intake and avoid excess alcohol. Maintain hydration and regular activity as tolerated. These steps can help BP control as you transition off prednisone, which can cause salt and water retention and higher BP. Follow?up and care coordination - Primary care follow-up: within 1 week to review blood pressure log, reassess symptoms, and adjust therapy if needed. Bringing all medications (including [id number] and supplements) is helpful for a complete review, because some drugs can raise blood pressure and should be stopped if possible. - Dermatology follow-up: if the rash does not improve within 1?2 weeks on topical therapy or if frequent recurrences occur, consider dermatology evaluation to confirm diagnosis and optimize non?systemic treatments. - Bring this instruction sheet, the home BP log, and the BP monitor to your appointments. Clear communication of medication changes and home BP data improves safety and blood pressure control after discharge. Why prednisone was stopped - Oral corticosteroids like prednisone can raise blood pressure by causing salt and water retention and other metabolic effects; even short courses are associated with transient elevations in blood pressure and other side effects. - Because today?s tests were reassuring and the rash can be managed with topical therapy, stopping prednisone is the safest option. Topical steroids used correctly have a favorable safety profile, with rare systemic effects and most concerns limited to local skin changes with prolonged or inappropriate use. Print Language: Nauruan Coding Level of Care Code ED Comic Book Designer for Adeline Grimaldo
[2025-02-06 01:00] VITALS: BP 137/89; PULSE 56; O2SAT 96
--- OUTSIDE RECORDS SUMMARY | 2025-02-08 07:58 | XMS_ITS | Encounter Summary ---
Author Organization [facility] Address [address] [place] [address] Care Team Providers Care Building Architectural Designer Name Role Phone Unavailable Primary Care Provider Unavailabl e Reason for Referral * EVAL & TREAT (Routine) - Closed Specialty Diagnoses / Procedures Referred By Sonja freedman Referred To Contact Urology Diagnoses Perinephric hematoma Deon Palomares MD [address] [place] [id number] Phone: tel: fax: [facility] [address] [place] [address] [place] [address] Phone: tel: fax: Referral ID Status Reason Start Date Expiration Date V isits Requested Visits Authorized [id number] Closed Specialty Services Required 01/31/2024 01/30/2025 1 1 Encounter Details Date Type Department Care Team (Late st Contact Info) Description 01/31/2024 Order [place] [address] External Referring Provider, Not In System [address] [place] [address] Perinephric hematoma (Primary Dx) Social History Tobacco Use Types Packs/Day Years Used Date Smoking Tobacco: Never Assessed Sex and Gender Information Value Date Recorded Sex Assigned at Not on file Legal Sex Male 6:09 PM CDT Gender Identity Not on file Sexual Orientation Not on file documented as of this encounter Plan of Treatment Upcoming Encounters Date Type Department Care Team (Late st Contact Info) Description 05/04/2025 11:00 AM LOOM SETTER FOURDRINIER Appointment [facility] [address] [place] [address] [place] [address] Jalyn Connors MD [address] [place] [address] 05/04/2025 1:00 PM LOOM SETTER FOURDRINIER Office Visit [facility] [address] [place] [address] [place] [address] Roberto Shen MD [id number] [place] [address] Scheduled Referrals Name Type Priority Associated Diagnoses Order Schedule Ambulatory Referral to Urology Outpatient Referral Routine Perinephric hematoma 1 Occurrences starting 01/31/2024 until 01/30/2025 documented as of this encounter Visit Diagnoses Diagnosis Perinephric hematoma- Primary Other specified disorder of kidney and ureter documented in this encounter
--- OUTSIDE RECORDS SUMMARY | 2025-02-08 07:58 | XMS_ITS | Patient Health Record ---
Author Organization [facility] Address [address] [place] [address] Care Team Providers Care Applied Biology Professor Name Role Phone Phoenix Calhoun Primary Care Provider FERCHO Shore Unavailable [phone] Reason For Referral No Information Plan Of Treatment No Information Insurance Providers Payer Name Payer Address Payer Phone Subscriber Number Group Number Insured Name Patient Relationship to Insured Coverage Start Date Coverage End Date [facility] [address] [address] [place], [place] [id number] [phone] [id number] Abhijit Orta Self - patient is the insured
--- OUTSIDE RECORDS SUMMARY | 2025-02-08 07:58 | XMS_ITS | Encounter Summary ---
Author Organization [facility] Address [address] [place] [address] Care Team Providers Care Metallurgical Analyst Name Role Phone Unavailable Primary Care Provider Unavailabl e Encounter Details Date Type Department Care Team (Late st Contact Info) Description 02/01/2024 Outside Records [facility] [address] [place] [address] Interface, Provider Social History Tobacco Use Types Packs/Day Years [...] st Contact Info) Description 05/04/2025 11:00 AM YOUTH OFFICER Appointment [facility] [address] [place] [address] [place] [address] Jalyn Connors MD [address] [place], [place] [id number] 05/04/2025 1:00 PM YOUTH OFFICER Office Visit [facility] [address] [place] [address] [place] [address] Roberto Shen MD [id number] [place], [place] [id number] documented as of this encounter Visit Diagnoses Not on filedocumented in this encounter
--- OUTSIDE RECORDS SUMMARY | 2025-02-08 07:58 | XMS_ITS | Clinical Summary ---
Author Organization [facility] Address [address] [place] [address] Care Team Providers Care Director Of Casino Name Role Phone Unavailable Primary Care Provider Unavailabl e Allergies No known active allergies Medications No known medications Social History Tobacco Use Types Packs/Day Years Used Date Smoking Tobacco: Never Passive Smoke Exposure: Never Smokeless Tobacco: Never Tobacco Cessation:Counseling Given: Not Answered Alcohol Use Standard Drinks/Week Comments Yes 4 (1 standard drink = 0.6 oz pur e alcohol) Sex and Gender Information Value Date Recorded Sex Assigned at Not on file Legal Sex Male 6:09 PM CDT Gender Identity Not on file Sexual Orientation Not on file Last Filed Vital Signs Vital Sign Reading Time Taken Comments Blood Pressure - - Pulse - - Temperature - - Respiratory Rate - - Oxygen Saturation - - Inhaled Oxygen Concentration - - Weight 135.2 kg (298 lb) 10/17/2024 10:39 AM CDT Height 203.2 cm (6' 8 ) 10/17/2024 10:39 AM CDT Body Mass Index 32.74 10/17/2024 10:39 AM CDT Plan of Treatment Upcoming Encounters Date Type Department Care Team (Late st Contact Info) Description 05/04/2025 11:00 AM INDUSTRIAL ECOLOGIST Appointment [facility] [address] [place] [address] [place] [address] [place] [address] [place] [id number] 05/04/2025 1:00 PM INDUSTRIAL ECOLOGIST Office Visit [facility] [address] [place] [address] [place] [address] [place] [address] [place] [address] [phone] [place] [address] Health Maintenance Due Date Last Done Comments COLONOSCOPY 1961 CT Colonography 1961 Colorectal Cancer Screening 1961 FIT DNA 1961 FIT 1961 Hepatitis C Screening 1961 SIGMOIDOSCOPY 1961 Anxiety Screening 1969 HIV Screening 02/27/1976 Depression Screening 1979 TDAP/DTaP/TD Vaccines (1 - Tdap) 02/27/1980 Lipid Panel 2001 Pneumococcal Vaccine 50+ (1 of 1 - PCV) 2011 Zoster Vaccine (1 of 2) 2011 COVID-19 Vaccine (1 - 2023-2 5 season) 2024 Influenza Series (#1) 2025 Respiratory Syncytial Virus (RSV) Immunization - pts and pts aged 60 yrs+ (1 - 1-dose 75+ series) 02/27/2036 Hepatitis B Vaccine Aged Out No longe r eligible based on patient's age to complete this topic Meningococcal B Vaccine Aged Out No l onger eligible based on patient's age to complete this topic Insurance [facility]
--- OUTSIDE RECORDS SUMMARY | 2025-02-08 07:58 | XMS_ITS | Clinical Summary ---
Author Organization [facility] Address [address] [place] [address] Phone Care Team Providers Care Color Paste Mixing Supervisor Name Role Phone Lj Phoenix Barriga Primary Care Provider [phone] Allergies Active Allergy Reactions Criticality Noted Date Comments Hydrocodone Arrhythmia High 11/07/2023 Medications No known medications Active Problems Problem Noted Date Diagnosed Date Diverticulitis 12/10/2023 Perinephric hematoma 12/10/2023 Left flank pain 12/10/2023 NNEKA (acute kidney injury) 11/08/2023 Renal mass 11/07/2023 Perinephric fluid collection 11/07/2023 Encounters Date Type Department Care Team Description 01/11/2025 External Device Data STL ABSTRACTION Provider, Abstract 01/11/2025 External Device Data STL ABSTRACTION Provider, Abstract 11/29/2024 External Device Data STL ABSTRACTION Provider, Abstract 11/29/2024 External Device Data STL ABSTRACTION Provider, Abstract 11/29/2024 External Device Data STL ABSTRACTION Provider, Abstract from Last 3 Months Family History Medical History Relation Name Comments No Known Problems Father No Known Problems Mother Relation Name Status Comments Father Mother Social History Tobacco Use Types Packs/Day Years Used Date Smoking Tobacco: Never Smokeless Tobacco: Never Tobacco Cessation:Counseling Given: Not Answered Alcohol Use Standard Drinks/Week Comments Not Currently 1 (1 standard drink = 0.6 oz pur e alcohol) occasionally Sex and Gender Information Value Date Recorded Sex Assigned at Not on file Legal Sex Male 8:05 PM CDT Gender Identity Not on file Sexual Orientation Not on file Last Filed Vital Signs Vital Sign Reading Time Taken Comments Blood Pressure 118/79 12/11/2023 7:18 AM CDT Pulse 48 12/11/2023 7:18 AM CDT Temperature 36.2 C (97.1 F) 12/11/2023 7:18 AM CDT Respiratory Rate 16 12/11/2023 7:18 AM CDT Oxygen Saturation 95% 12/11/2023 7:18 AM CDT Inhaled Oxygen Concentration - - Weight 126.2 kg (278 lb 3.2 oz) 12/10/2023 4:44 AM CDT Height 200.7 cm (6' 7 ) 12/10/2023 4:44 AM CDT Body Mass Index 31.34 12/10/2023 4:44 AM CDT Plan of Treatment Health Maintenance Due Date Last Done Comments DTAP/TDAP/TD VACCINES (1 - Tdap) 02/27/1980 COLORECTAL SCREENING 2006 Colorectal Cancer Screening 2006 FIT-DNA Q 3 years 2006 FIT/FOBT Q 1 year 2006 Flex Sig/CT Colonography Q 5 years 2006 ZOSTER VACCINE (1 of 2) 2011 INFLUENZA VACCINE (#1) 2025 RSV VACCINE (60+ or ) (1 - 1-dose 75+ series) 02/27/2036 Insurance [employer] [facility] [id number] Advance Directives For more information, please contact: [phone] * Full Code (Latest Code Status on File) Date Activated Date Inactivated Comments 12/10/2023 3:57 AM 12/11/2023 11:55 AM * Full Code Date Activated Date Inactivated Comments 11/07/2023 2:11 PM 11/09/2023 2:26 PM Care Teams Color Paste Mixing Supervisor Relationship Specialty Start Date End Date Phoenix Calhoun DO [address] [place] [id number] PCP - General Family Practice 11/08/23
== END 2025-02-06 01:01 | disposition home or self-care (01) ==
PROVIDERS: Emergency Medicine; Emergency Provider Physician Assistant; PCP Family Medicine
DX: L30.9 Dermatitis, unspecified (principal); I10 Essential (primary) hypertension
CPT/HCPCS: 80053; 81001; 83735; 85025; 93005; 99284